=== PATIENT | male | born 2000 | race African-American/Black ===

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

== ENCOUNTER 2019-08-29 15:11 | Inpatient (IN) | payer SELFPAY ==
[~2019-08-29] VITALS: Ht 170.2 cm; Wt 62.6 kg
[2019-08-29] MEDS ORDERED: ONDANSETRON HCL 4 MG/2 ML VIAL IV ONE (15:45)
[2019-08-29] MEDS ORDERED: SODIUM CHLORIDE 0.9% 1,000 ML IV ONE (15:45)
[2019-08-29 15:56] LABS: Basophils # (auto) 0 10 ^3/uL (0-0.2); Basophils % (auto) 0.4 % (0.0-2.0); Eosinophils # (auto) 0 10 ^3/uL (0-0.8); Eosinophils % (auto) 0.2 % (0.0-7.0); Hematocrit 47.1 % (41.0-53.0); Lymphocytes # (auto) 2.5 10 ^3/uL (0.4-5.4); Lymphocytes % (auto) 21.7 % (10.0-50.0); Mean Corpuscular Hemoglobin 30.2 pg (28.0-32.0); Mean Corpuscular Volume 88.8 fL (80.0-100.0); Monocytes # (auto) 0.6 10 ^3/uL (0-1.3); Monocytes % (auto) 5.6 % (0.0-12.0); Neutrophils # (auto) 8.3 10 ^3/uL (1.6-8.6); Neutrophils % (auto) 72.1 % (37.0-80.0); Nucleated Red Blood Cells % 0.1 %; Platelet Count (auto) 312 10^3/uL (140-450); Red Blood Cells 5.31 10^6/uL (4.5-5.90); Red Cell Distribution Width 14.2 % (11.8-14.3); White Blood Cell 11.5 10^3/uL (4.4-10.8)
[2019-08-29] MEDS ORDERED: SODIUM CHLORIDE 0.9% 1,000 ML IVB ONE (16:03)
[2019-08-29 16:11] LABS: Albumin 4.8 g/dL (3.4-5.0); Calcium 9.9 mg/dL (8.5-10.1)
[2019-08-29 16:14] LABS: BUN/Creatinine Ratio 13.2; Bilirubin, Total 0.5 mg/dL (0.2-1.0); Total Protein 8.1 g/dL (6.4-8.2)
[2019-08-29 16:24] LABS: Potassium 2.6 mmol/L (3.5-5.1)
[2019-08-29] MEDS ORDERED: POTASSIUM CHL 20MEQ/100ML 200 ML IV ONE (16:31)
[2019-08-29] MEDS: POTASSIUM CHL 20MEQ/100ML 100 ML IV SCH ×2 (16:41→18:21)
[2019-08-29 16:46] LABS: Salicylate < 1.7 mg/dL (2.8-20.0)
[2019-08-29 16:48] LABS: INR 1.09 (0.9-1.15); Partial Thromboplastin Time 22.6 sec (23.64-32.05)
[2019-08-29 16:50] LABS: Acetaminophen < 2.0 ug/mL (10-30)
[2019-08-29 17:29] LABS: Urine Bacteria NONE SEEN /hpf (None Seen); Urine Blood TRACE /uL (Negative); Urine Hyaline Cast FEW /lpf (0 - 2); Urine Mucus FEW (None Seen); Urine Specific Gravity 1.026 (1.001-1.035); Urine WBC 2 /hpf (0 - 3)
[2019-08-29 17:43] LABS: Amphetamine Screen, Urine NEGATIVE (NEGATIVE); Barbiturate Scree,Urine NEGATIVE (NEGATIVE); Benzodiazephine Screen, Urine NEGATIVE (NEGATIVE); Cocaine Screen, Urine NEGATIVE (NEGATIVE); Opiate Scree,Urine NEGATIVE (NEGATIVE); Phencyclidine Screen, Urine NEGATIVE (NEGATIVE)
[2019-08-29 17:51] LABS: Cannabinoid Screen, Urine POSITIVE (NEGATIVE)
[2019-08-29] MEDS ORDERED: ACETAMINOPHEN 500 MG TAB PO PRN (18:45)
[2019-08-29] MEDS ORDERED: ONDANSETRON HCL 4 MG/2 ML VIAL IV PRN (18:45)
[2019-08-29] MEDS: SOD CHL 0.9%/ KCL 20MEQ 1,000 ML IV SCH (18:52)
[2019-08-29 22:00] VITALS: BP 107/63
--- NOTE | 2019-08-29 22:00 | NUR ---
Telemetry admit from ER NABIL MENDOZA admitted to Telemetry unit. Patient oriented to Shannon Navarro, primary RN, unit, room, bed, and unit policies regarding patient care. Patient has no S/S of distress/SOB or pain. Patient AAOx4. Patient now on continuous telemetry monitoring, tele box # 64 and telemetry reading on arrival to unit is NSR in the 70s. Patient placed on bedside oxygen 2 liters via nasal cannula, weighed by bedscale and encouraged to call if they need something. All questions and concerns addressed, patient verbalized understanding.
[2019-08-29] MEDS: FAMOTIDINE (10MG/ML) 2ML VL IV SCH (23:10)
--- NOTE | 2019-08-30 04:25 | NUR ---
Patient weaned off of 2 liters of oxygen via nasal cannula to room air. Patient's oxygen saturation on room air is 97%. Patient has no S/S of distress/SOB. Patient's respirations even and unlabored.
[2019-08-30] MEDS: SOD CHL 0.9%/ KCL 20MEQ 1,000 ML IV SCH (04:31)
[2019-08-30 05:00] VITALS: BP 98/59
--- NOTE | 2019-08-30 05:05 | NUR ---
Blood pressure of 98/59 noted. Patient denies dizziness. Patient has no S/S of distress/SOB or pain. Patient asymptomatic. Will continue to monitor.
--- NOTE | 2019-08-30 06:08 | NUR ---
Heart rate is currently 61 on tele monitor. Patient asymptomatic.
[2019-08-30 06:41] LABS: Basophils # (auto) 0 10 ^3/uL (0-0.2); Basophils % (auto) 0.4 % (0.0-2.0); Eosinophils # (auto) 0.2 10 ^3/uL (0-0.8); Eosinophils % (auto) 1.8 % (0.0-7.0); Hematocrit 38.7 % (41.0-53.0); Hemoglobin 13.4 g/dL (13.5-17.5); Lymphocytes # (auto) 1.7 10 ^3/uL (0.4-5.4); Mean Corpuscular Hemoglobin 30.7 pg (28.0-32.0); Mean Corpuscular Hgb Conc. 34.7 g/dL (32.0-36.0); Mean Corpuscular Volume 88.5 fL (80.0-100.0); Monocytes # (auto) 0.7 10 ^3/uL (0-1.3); Monocytes % (auto) 7.8 % (0.0-12.0); Neutrophils # (auto) 6.8 10 ^3/uL (1.6-8.6); Nucleated Red Blood Cells % 0.1 %; Platelet Count (auto) 233 10^3/uL (140-450); Red Blood Cells 4.37 10^6/uL (4.5-5.90); Red Cell Distribution Width 14.2 % (11.8-14.3); White Blood Cell 9.5 10^3/uL (4.4-10.8)
[2019-08-30 06:58] LABS: Potassium 3.6 mmol/L (3.5-5.1)
--- NOTE | 2019-08-30 07:00 | NUR ---
CLOSING NOTE Patient is on room air. Respirations even and unlabored. Patient has no S/S of distress/SOB or pain.
[2019-08-30 07:54] LABS: BUN/Creatinine Ratio 13.8; Calcium 8.5 mg/dL (8.5-10.1)
[2019-08-30 07:55] LABS: Albumin 3.2 g/dL (3.4-5.0); Bilirubin, Total 0.7 mg/dL (0.2-1.0); Total Protein 5.5 g/dL (6.4-8.2)
--- NOTE | 2019-08-30 08:00 | NUR ---
Opening Shift Note Assumed care of patient, awake and alert. No S/S of distress/SOB or pain. Instructed on POC and to call for assist PRN, will continue to monitor for changes Q1hr and PRN.
[2019-08-30 09:00] VITALS: BP 109/60
[2019-08-30] MEDS: FAMOTIDINE (10MG/ML) 2ML VL IV SCH (10:00)
--- NOTE | 2019-08-30 10:21 | NUR ---
Steven is out Addendum: 08/30/19 at 1022 by BALDO HIGGINS RN wrong alia.
--- NOTE | 2019-08-30 10:21 | NUR ---
Pepcid is out of order per pharmacy. Will notify hospitalist.
[2019-08-30 13:00] VITALS: BP 108/63
[2019-08-30 13:14] VITALS: BP 109/60
--- NOTE | 2019-08-30 14:20 | NUR ---
Discharge instructions given as ordered. Encourage to follow up with PMD (patient has insurance in [place], instructed to transfer insurance to [place] and follow up with PCP) as instructed. All questions and concerns addressed. Patient verbalized understanding. Medication reconciliation form completed and copy given to patient. IV removed with catheter intact, pressure dressing applied. Telemetry unit returned to ICU. Patient taken to vehicle via wheelchair with all personal belongings, accompanied by staff and family member. No distress noted at time of departure.
== END 2019-08-30 14:20 | disposition home or self-care (01) | DRG 392 ==
LOC: ER 15:11 → EDBD 15:11 → TELE 15:12 → TELE-WESTW 21:52
PROVIDERS: ADMIT Nurse Practitioner Acute Care; ATTEND Nurse Practitioner Acute Care
DX: R11.2 Nausea with vomiting, unspecified (principal); R65.10 Systemic inflammatory response syndrome (SIRS) of non-infectious origin without acute organ dysfunction; E87.6 Hypokalemia; F12.10 Cannabis abuse, uncomplicated; F17.210 Nicotine dependence, cigarettes, uncomplicated; R00.1 Bradycardia, unspecified
CPT/HCPCS: 36415; 71045; 74176; 80053; 80307; 80320; 80329; 81001; 83735; 84484; 85025; 85610; 85730; 93005; G0378; J3480; J3490